=== PATIENT | male | born 1975 | race Two or more races ===

== ENCOUNTER 2017-03-07 16:15 | Emergency (ER) | payer MEDICAID, OTHER ==
[~2017-03-07] VITALS: Ht 165.1 cm; Wt 86.2 kg
[2017-03-07 16:27] VITALS: BP 143/99
== END 2017-03-07 18:11 | disposition left against medical advice (07) ==
LOC: ER 16:27
DX: S61.212A Laceration without foreign body of right middle finger without damage to nail, initial encounter (principal); Z53.21 Procedure and treatment not carried out due to patient leaving prior to being seen by health care provider; X58.XXXA Exposure to other specified factors, initial encounter; Y93.89 Activity, other specified; Y92.89 Other specified places as the place of occurrence of the external cause; Y99.8 Other external cause status

== ENCOUNTER 2018-09-29 14:10 | Emergency (ER) | payer MEDICAID ==
[~2018-09-29] VITALS: Ht 165.1 cm; Wt 83.9 kg
[2018-09-29 14:20] VITALS: BP 139/93
== END 2018-09-29 15:44 | disposition home or self-care (01) ==
LOC: ER 14:10
DX: J20.9 Acute bronchitis, unspecified (principal)
CPT/HCPCS: 71045

== ENCOUNTER 2019-04-24 04:28 | Emergency (ER) | payer MEDICAID ==
[~2019-04-24] VITALS: Ht 165.1 cm; Wt 86.2 kg
[2019-04-24 04:47] VITALS: BP 133/101
== END 2019-04-24 07:44 | disposition home or self-care (01) ==
LOC: ER 04:28
DX: M75.51 Bursitis of right shoulder (principal)
CPT/HCPCS: 73030

== ENCOUNTER 2019-05-13 10:08 | Emergency (ER) | payer MEDICAID ==
[~2019-05-13] VITALS: Ht 165.1 cm; Wt 83.9 kg
[2019-05-13 11:02] VITALS: BP 107/75
[2019-05-13] MEDS ORDERED: METHOCARBAMOL 500 MG TAB PO ONE (14:00)
== END 2019-05-13 14:25 | disposition home or self-care (01) ==
LOC: ER 10:08
DX: M25.511 Pain in right shoulder (principal); V49.59XA Passenger injured in collision with other motor vehicles in traffic accident, initial encounter; Y93.89 Activity, other specified; Y99.8 Other external cause status; Y92.488 Other paved roadways as the place of occurrence of the external cause
CPT/HCPCS: 71101; 73030

== ENCOUNTER 2021-12-18 19:54 | Emergency (ER) | payer MEDICAID ==
[~2021-12-18] VITALS: Ht 167.6 cm; Wt 97.5 kg
[2021-12-18 22:10] VITALS: BP 135/96
[2021-12-18] MEDS ORDERED: TETANUS-DIPTH-ACEL PERTUSSIS 0.5ML SYR Tdap IM ONE (22:15)
[2021-12-18] MEDS ORDERED: BACITRACIN TOP OINT 1 UD PKG TOP ONE ×2 (23:00→23:15)
[2021-12-18] MEDS ORDERED: NEOMYCIN-BACITRACIN-POLYM UNITDOSE PKG TOP OINT TOP ONE (23:00)
[2021-12-18] MEDS ORDERED: BACITRACIN-POLYMYXIN B TOPICAL OINT UD TOP ONE (23:15)
== END 2021-12-18 23:24 | disposition home or self-care (01) ==
LOC: ER 19:54
DX: S61.411A Laceration without foreign body of right hand, initial encounter (principal); W26.8XXA Contact with other sharp object(s), not elsewhere classified, initial encounter; Y93.89 Activity, other specified; Y92.89 Other specified places as the place of occurrence of the external cause; Y99.8 Other external cause status
CPT/HCPCS: 12002; 90471; 90715; 99283; J2001

== ENCOUNTER 2022-01-31 11:44 | Inpatient (IN) | payer SELFPAY ==
[~2022-01-31] VITALS: Ht 167.6 cm; Wt 99.0 kg
[2022-01-31] MEDS ORDERED: ONDANSETRON HCL 4 MG/2 ML VIAL IV ONE (12:00)
[2022-01-31] MEDS ORDERED: SODIUM CHLORIDE 0.9% 500 ML IVB ONE (12:00)
[2022-01-31] MEDS ORDERED: MORPHINE SULFATE 4 MG/ML SYR/VIAL IV ONE (12:00)
[2022-01-31 12:39] LABS: Basophils # (auto) 0.1 10 ^3/uL (0-0.2); Eosinophils # (auto) 0.2 10 ^3/uL (0-0.8); Nucleated Red Blood Cells % 0.1 %; White Blood Cell 8.3 10^3/uL (4.4-10.8)
[2022-01-31 12:43] LABS: Basophils % (auto) 0.8 % (0.0-2.0); Eosinophils % (auto) 2.8 % (0.0-7.0); Hematocrit 44.1 % (41.0-53.0); Hemoglobin 15.3 g/dL (13.5-17.5); Lymphocytes # (auto) 2.1 10 ^3/uL (0.4-5.4); Lymphocytes % (auto) 25.2 % (10.0-50.0); Mean Corpuscular Hemoglobin 29.1 pg (28.0-32.0); Mean Corpuscular Hgb Conc. 34.8 g/dL (32.0-36.0); Mean Corpuscular Volume 83.7 fL (80.0-100.0); Monocytes # (auto) 0.7 10 ^3/uL (0-1.3); Monocytes % (auto) 8.1 % (0.0-12.0); Neutrophils # (auto) 5.2 10 ^3/uL (1.6-8.6); Neutrophils % (auto) 63.1 % (37.0-80.0); Red Blood Cells 5.27 10^6/uL (4.5-5.90); Red Cell Distribution Width 13.7 % (11.8-14.3)
[2022-01-31 12:55] LABS: INR 0.99 (0.9-1.15); Partial Thromboplastin Time 27.7 sec (23.6-33.0)
[2022-01-31 12:59] LABS: Albumin 3.9 g/dL (3.4-5.0); BUN/Creatinine Ratio 13.1; Bilirubin, Total 0.3 mg/dL (0.2-1.0); Calcium 9.7 mg/dL (8.5-10.1); Total Protein 8.5 g/dL (6.4-8.2)
[2022-01-31] MEDS ORDERED: IOHEXOL 300 MG/ML 100ML BOTTLE IJ ONE (13:43)
[2022-01-31 15:15] LABS: Urine Blood Normal /uL (Negative)
[2022-01-31 16:30] LABS: Urine WBC 0-2 /hpf (0 - 3)
[2022-01-31] MEDS ORDERED: NITROGLYCERIN 0.4 MG SL TAB SL PRN (16:30)
[2022-01-31] MEDS ORDERED: MORPHINE SULFATE INJECTION 2 MG/ML SYRG IV PRN (16:30)
[2022-01-31 16:31] LABS: Urine Bacteria RARE /hpf (None Seen)
[2022-01-31] MEDS ORDERED: SODIUM CHLORIDE 0.9% 1,000 ML IV SCH (20:15)
[2022-01-31] MEDS ORDERED: ONDANSETRON HCL 4 MG/2 ML VIAL IV PRN (20:15)
[2022-01-31] MEDS ORDERED: DOCUSATE SOD 100 MG CAP PO PRN (20:15)
[2022-01-31] MEDS ORDERED: LORazepam 0.5 MG TAB PO PRN (20:15)
[2022-01-31] MEDS ORDERED: hydrALAZINE HCL 20 MG/ML VL IV PRN (20:15)
[2022-01-31] MEDS: HYDROcodone-ACET 5/325MG TAB PO PRN (20:58)
[2022-01-31 21:13] LABS: Magnesium 2.4 mg/dL (1.6-2.6); Phosphorus 2.9 mg/dL (2.5-4.90)
[2022-01-31 23:17] LABS: INR 1.02 (0.9-1.15); Partial Thromboplastin Time 27.9 sec (23.6-33.0)
[2022-01-31 23:25] VITALS: BP 137/93
[2022-01-31] MEDS: ceFAZolin 1GM/50ML 50 ML IV SCH (23:47)
[2022-02-01] MEDS: HYDROcodone-ACET 5/325MG TAB PO PRN ×3 (00:36→22:41)
[2022-02-01 05:20] VITALS: BP 129/80
[2022-02-01] MEDS: ceFAZolin 1GM/50ML 50 ML IV SCH ×3 (05:48→22:34)
[2022-02-01] MEDS ORDERED: DOXAPRAM HCL 20 MG/ML 20ML VIAL INJ IV ONE (06:30)
[2022-02-01] MEDS ORDERED: ROCURONIUM 10MG/ML 10ML VIAL IV ONE (06:31)
[2022-02-01] MEDS ORDERED: SUCCINYLCHOLINE CHLORIDE 20 MG/ML 10ML VIAL IV ONE (06:31)
[2022-02-01] MEDS ORDERED: HYDROmorphone HCL 2 MG/ML VL/or syr IV PRN (07:15)
[2022-02-01] MEDS ORDERED: METOCLOPRAMIDE HCL 5MG/ml INJ 2ml VIAL IV PRN (07:15)
[2022-02-01] MEDS ORDERED: MORPHINE SULFATE 4 MG/ML SYR/VIAL IV PRN (07:15)
[2022-02-01] MEDS ORDERED: ceFAZolin 1GM/50ML 50 ML IV ONE (07:16)
[2022-02-01] MEDS ORDERED: BUPIVACAINE W/ EPINEPH 0.25% INJ 50ML MDV ONE (07:26)
[2022-02-01] MEDS ORDERED: PROPOFOL 10 MG/ML 20 ML IV ONE (07:31)
[2022-02-01] MEDS ORDERED: SODIUM CHLORIDE LOCK 10 ML ONE (07:31)
[2022-02-01] MEDS ORDERED: fentaNYL CITRATE 100 MCG/2 ML VL ONE (07:31)
[2022-02-01] MEDS ORDERED: MEPERIDINE HCL (25 MG/ML) 1ML VIAL ONE (07:31)
[2022-02-01] MEDS ORDERED: ONDANSETRON HCL 4 MG/2 ML VIAL ONE (07:31)
[2022-02-01] MEDS ORDERED: NEOSTIGMINE 1 MG/ML INJ (10mg/10ML VIAL) ONE (07:31)
[2022-02-01] MEDS ORDERED: MIDAZOLAM HCL 2MG/2ML 2ml VIAL (1mg/ml) ONE (07:31)
[2022-02-01] MEDS ORDERED: GLYCOPYRROLATE 0.2 MG/ML 1ML VIAL ONE (07:41)
[2022-02-01] MEDS ORDERED: DexAMETHasone SOD PHOS 10MG/1ML VIAL INJ ONE (07:42)
[2022-02-01] MEDS ORDERED: D5W/SOD CHL 0.45%/KCL 20MEQ 1,000 ML IV SCH (08:30)
[2022-02-01] MEDS: ENOXAPARIN SOD 40 MG/0.4 ML SYRINGE SC SCH (10:00)
[2022-02-01] MEDS: FAMOTIDINE (10MG/ML) 2ML VL IV SCH ×2 (10:00→17:40)
[2022-02-01 10:32] LABS: Basophils # (auto) 0 10 ^3/uL (0-0.2); Basophils % (auto) 0.4 % (0.0-2.0); Eosinophils # (auto) 0 10 ^3/uL (0-0.8); Eosinophils % (auto) 0.3 % (0.0-7.0); Hemoglobin 14.5 g/dL (13.5-17.5); Lymphocytes # (auto) 0.7 10 ^3/uL (0.4-5.4); Lymphocytes % (auto) 7.4 % (10.0-50.0); Mean Corpuscular Hemoglobin 29.2 pg (28.0-32.0); Mean Corpuscular Hgb Conc. 34.6 g/dL (32.0-36.0); Mean Corpuscular Volume 84.4 fL (80.0-100.0); Monocytes # (auto) 0.2 10 ^3/uL (0-1.3); Monocytes % (auto) 1.8 % (0.0-12.0); Neutrophils # (auto) 8.4 10 ^3/uL (1.6-8.6); Neutrophils % (auto) 90.1 % (37.0-80.0); Red Blood Cells 4.98 10^6/uL (4.5-5.90); Red Cell Distribution Width 13.7 % (11.8-14.3); White Blood Cell 9.4 10^3/uL (4.4-10.8)
[2022-02-01 10:49] LABS: INR 1.05 (0.9-1.15); Partial Thromboplastin Time 28.7 sec (23.6-33.0)
[2022-02-01 11:01] LABS: Magnesium 2.2 mg/dL (1.6-2.6); Potassium 3.8 mmol/L (3.5-5.1)
[2022-02-01 11:06] LABS: Albumin 3.6 g/dL (3.4-5.0); BUN/Creatinine Ratio 17.3; Bilirubin, Total 0.4 mg/dL (0.2-1.0); CRP High Sensitivity 0.71 mg/dL (< 0.3); Phosphorus 1.2 mg/dL (2.5-4.90); Total Protein 7.7 g/dL (6.4-8.2); Uric Acid 5.7 mg/dL (3.5-7.2)
[2022-02-01 11:08] LABS: Thyroid Stimulating Hormone 2.15 uIU/mL (0.358-3.74)
[2022-02-01 12:49] VITALS: BP 124/81
[2022-02-01] MEDS: D5W/SOD CHL 0.45%/KCL 20MEQ 1,000 ML IV SCH (15:45)
[2022-02-01 17:00] VITALS: BP 131/79
[2022-02-01] MEDS: MORPHINE SULFATE INJECTION 2 MG/ML SYRG IV PRN (18:24)
[2022-02-01 21:38] VITALS: BP 125/68
[2022-02-02] MEDS: D5W/SOD CHL 0.45%/KCL 20MEQ 1,000 ML IV SCH ×2 (01:45→02:22)
[2022-02-02 05:00] VITALS: BP 130/79
[2022-02-02] MEDS: ceFAZolin 1GM/50ML 50 ML IV SCH ×2 (06:25→14:00)
[2022-02-02] MEDS: HYDROcodone-ACET 5/325MG TAB PO PRN ×2 (06:35→16:01)
[2022-02-02 09:00] VITALS: BP 129/78
[2022-02-02] MEDS: ENOXAPARIN SOD 40 MG/0.4 ML SYRINGE SC SCH (10:13)
[2022-02-02] MEDS: MORPHINE SULFATE INJECTION 2 MG/ML SYRG IV PRN (11:26)
[2022-02-02] MEDS ORDERED: SODIUM PHOSPHATES 40 MEQ in D5W 5% 250 ML IV ONE (11:45)
[2022-02-02 13:00] VITALS: BP 133/88
== END 2022-02-02 15:44 | disposition home or self-care (01) | DRG 355 ==
LOC: ER 11:44 → OVERFLOW 16:16 → CENTRAL 22:51
PROVIDERS: ADMIT Hospitalist; ATTEND Internal Medicine
PROC: 0WQF0ZZ Repair Abdominal Wall, Open Approach (ICD-10-PCS; principal; 2022-02-01 07:29)
DX: K42.0 Umbilical hernia with obstruction, without gangrene (principal); E66.01 Morbid (severe) obesity due to excess calories; E78.5 Hyperlipidemia, unspecified; I10 Essential (primary) hypertension; Z20.822 Contact with and (suspected) exposure to COVID-19; Z80.0 Family history of malignant neoplasm of digestive organs; Z68.35 Body mass index [BMI] 35.0-35.9, adult
CPT/HCPCS: 36415; 71046; 74177; 80053; 80061; 81001; 82150; 82550; 82728; 83036; 83615; 83690; 83735; 83880; 84100; 84443; 84484; 84550; 85025; 85379; 85610; 85652; 85730; 86141; 87040; 87070; 87086; 87205; 93005; 96361; 96374; 96375; G0378; J0330; J0690; J1100; J2250; J2405; J2704; J3490; J7060

== ENCOUNTER 2024-03-10 07:11 | Emergency (ER) | payer MEDICAID ==
[~2024-03-10] VITALS: Ht 167.6 cm; Wt 80.0 kg
[2024-03-10 07:31] VITALS: BP 136/78; PULSE 98; RESP 18; TEMP 98.1; O2SAT 97
[2024-03-10] MEDS: methylPREDNISolone SOD SUCC 125 MG/2 ML VL IM ONE (07:41)
[2024-03-10] MEDS: KETOROLAC TROMETH 30 MG/ML 1ML VIAL IM ONE (07:41)
[2024-03-10] MEDS ORDERED: CYCL-837 PO (09:36)
[2024-03-10] MEDS ORDERED: IBUP1TAB5 PO (09:36)
== END 2024-03-10 09:37 | disposition home or self-care (01) ==
LOC: EDBD 07:11 → ER 07:11
DX: M25.511 Pain in right shoulder (principal); I10 Essential (primary) hypertension
CPT/HCPCS: 73030; 96372; 99284; J1885; J2919